=== PATIENT | male | born 2000 | race Hispanic/Latino ===

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

== ENCOUNTER 2022-06-12 12:57 | Emergency (ER) | payer SELFPAY ==
[2022-06-12] MEDS ORDERED: Ondansetron PF 4 MG/2 ML Vial ONE (13:37)
[2022-06-12] MEDS ORDERED: Sodium Chloride 0.9% 1,000 ML ONE (13:37)
[2022-06-12] MEDS ORDERED: Ketorolac Tromethamine 30 MG/ML VIAL ONE (13:37)
[2022-06-12] MEDS ORDERED: Prochlorperazine 10 MG/2 ML VIAL ONE (13:40)
[2022-06-12 13:52] LABS: #Basophils 0.1 thou/uL (0.0-0.2); #Eosinphils 0.1 thou/uL (0.0-0.7); #Lymphocytes 2.2 thou/uL (1.20-3.40); #Monocytes 0.7 thou/uL (0.11-0.59); #Neutrophils 10.3 thou/uL (1.40-6.50); %Basophils 0.6 % (0.0-1.0); %Eosinophils 0.9 % (0.0-10.0); %Lymphocytes 16.4 % (28.0-48.0); %Monocytes 5.5 % (0.0-4.0); %Neutrophils 76.6 % (31.0-61.0); Hemoglobin 15.2 g/dL (14.0-18.0); Mean Corpuscular HGB CONC 33.7 g/dL (32.0-36.0); Mean Corpuscular Hemoglobin 30.8 pg (25.0-35.0); Mean Corpuscular Volume 91.3 fl (78.0-98.0); Mean Platelet Volume 7.4 fL (7.4-10.4); Platelet Count 367 10x3/uL (130-400); RBC Distribution Width 11.5 % (11.5-14.5); Red Blood Cell (RBC) Count 4.92 mill/uL (4.00-5.20); White Blood Cell (WBC) Count 13.4 10x3/uL (4.8-10.8)
[2022-06-12 14:13] LABS: ALT (SGPT) 62 U/L (8-55); AST (SGOT) 32 U/L (10-45); Alkaline Phosphatase 73 U/L (50-130); Anion Gap 21 mmol/L (10-20); BUN (Urea Nitrogen) 10 mg/dL (8.4-21.0); Bilirubin, Total 0.8 mg/dL (0.2-1.2); Calc. Creatinine Clearance 0 mL/min (70-130); Calcium 10.1 mg/dL (7.8-10.44); Carbon Dioxide 15 mmol/L (22-29); Chloride 105 mmol/L (98-107); Estimated GFR 110; Globulin 3.3 g/dL (2.4-3.5); Glucose 169 mg/dL (70-105); Lipase 222 U/L (8-78); Potassium 3.2 mmol/L (3.5-5.1); Protein, Total 8.3 g/dL (6.0-8.3); Sodium 138 mmol/L (136-145)
[2022-06-12] MEDS ORDERED: Potassium Chloride 20 MEQ TAB ONE (15:03)
== END 2022-06-12 15:25 | disposition home or self-care (01) ==
LOC: NAV ERS 12:57
DX: R11.2 Nausea with vomiting, unspecified (principal); R19.7 Diarrhea, unspecified
CPT/HCPCS: 36416; 80053; 83690; 85025; 96361; 96374; 96375; 36415-59; J0780; J1885; J2405; J7050

== ENCOUNTER 2023-04-25 12:52 | Emergency (ER) | payer SELFPAY ==
[2023-04-25] MEDS ORDERED: Haloperidol Lactate 5 MG/ML VIAL ONE (13:14)
[2023-04-25] MEDS ORDERED: Sodium Chloride 0.9% 1,000 ML ONE (13:14)
[2023-04-25 13:41] LABS: #Basophils 0.1 thou/uL (0.0-0.2); #Lymphocytes 1.3 thou/uL (1.20-3.40); #Monocytes 0.6 thou/uL (0.11-0.59); #Neutrophils 13.8 thou/uL (1.40-6.50); %Basophils 0.4 % (0.0-1.0); %Eosinophils 0.1 % (0.0-10.0); %Lymphocytes 8.1 % (28.0-48.0); %Monocytes 3.5 % (0.0-4.0); %Neutrophils 87.8 % (31.0-61.0); Hematocrit 45.6 % (42.0-52.0); Hemoglobin 15.5 g/dL (14.0-18.0); Mean Corpuscular HGB CONC 33.9 g/dL (32.0-36.0); Mean Corpuscular Hemoglobin 30.9 pg (25.0-35.0); Mean Corpuscular Volume 91.1 fl (78.0-98.0); Mean Platelet Volume 7.3 fL (7.4-10.4); Platelet Count 364 10x3/uL (130-400); Red Blood Cell (RBC) Count 5.01 mill/uL (4.00-5.20); White Blood Cell (WBC) Count 15.7 10x3/uL (4.8-10.8)
[2023-04-25 13:50] LABS: ALT (SGPT) 17 U/L (8-55); AST (SGOT) 20 U/L (5-34); Alkaline Phosphatase 87 U/L (50-130); Anion Gap 16 mmol/L (10-20); BUN (Urea Nitrogen) 11 mg/dL (8.9-20.6); Bilirubin, Total 0.8 mg/dL (0.2-1.2); Calc. Creatinine Clearance 0 mL/min (70-130); Calcium 9.9 mg/dL (7.8-10.44); Carbon Dioxide 21 mmol/L (22-29); Chloride 101 mmol/L (98-107); Estimated GFR 115; Globulin 3.3 g/dL (2.4-3.5); Glucose 144 mg/dL (70-105); Lipase 60 U/L (8-78); Magnesium 1.9 mg/dL (1.7-2.2); Potassium 3.4 mmol/L (3.5-5.1); Protein, Total 8.3 g/dL (6.0-8.3); Sodium 135 mmol/L (136-145)
== END 2023-04-25 14:46 | disposition home or self-care (01) ==
LOC: NAV ERS 12:52
DX: F12.288 Cannabis dependence with other cannabis-induced disorder (principal); R11.2 Nausea with vomiting, unspecified
CPT/HCPCS: 80053; 83690; 83735; 85025; 96361; 96374; J1630; J7050

== ENCOUNTER 2023-04-27 12:58 | Emergency (ER) | payer SELFPAY ==
[2023-04-27] MEDS ORDERED: Sodium Chloride 0.9% 1,000 ML ONE (13:35)
[2023-04-27] MEDS ORDERED: Haloperidol Lactate 5 MG/ML VIAL ONE (13:35)
[2023-04-27 13:57] LABS: #Lymphocytes 0.9 thou/uL (1.20-3.40); #Monocytes 0.4 thou/uL (0.11-0.59); #Neutrophils 10.2 thou/uL (1.40-6.50); %Basophils 0.4 % (0.0-1.0); %Lymphocytes 8.1 % (28.0-48.0); %Monocytes 3.6 % (0.0-4.0); %Neutrophils 87.8 % (31.0-61.0); Hematocrit 44.8 % (42.0-52.0); Hemoglobin 15.2 g/dL (14.0-18.0); Mean Corpuscular Hemoglobin 30.5 pg (25.0-35.0); Mean Corpuscular Volume 89.6 fl (78.0-98.0); Mean Platelet Volume 6.8 fL (7.4-10.4); Platelet Count 339 10x3/uL (130-400); RBC Distribution Width 10.9 % (11.5-14.5); White Blood Cell (WBC) Count 11.6 10x3/uL (4.8-10.8)
[2023-04-27 14:12] LABS: ALT (SGPT) 15 U/L (8-55); AST (SGOT) 18 U/L (5-34); Alkaline Phosphatase 82 U/L (50-130); Anion Gap 17 mmol/L (10-20); BUN (Urea Nitrogen) 12 mg/dL (8.9-20.6); Bilirubin, Total 1.1 mg/dL (0.2-1.2); Calc. Creatinine Clearance 0 mL/min (70-130); Calcium 9.7 mg/dL (7.8-10.44); Carbon Dioxide 19 mmol/L (22-29); Chloride 103 mmol/L (98-107); Estimated GFR 109; Globulin 3.3 g/dL (2.4-3.5); Glucose 141 mg/dL (70-105); Lipase 108 U/L (8-78); Potassium 3.6 mmol/L (3.5-5.1); Protein, Total 8.3 g/dL (6.0-8.3); Sodium 135 mmol/L (136-145)
== END 2023-04-27 15:47 | disposition home or self-care (01) ==
LOC: NAV ERS 12:58
DX: R11.2 Nausea with vomiting, unspecified (principal)
CPT/HCPCS: 80053; 83690; 85025; 96360; 96361; 96372; J1630; J7050

== ENCOUNTER 2024-02-15 15:21 | Emergency (ER) | payer BC ==
[2024-02-15] MEDS ORDERED: Haloperidol Lactate 5 MG/ML VIAL ONE (15:42)
[2024-02-15] MEDS ORDERED: diphenhydrAMINE 50 MG/ML VIAL ONE ×2 (15:45→16:35)
[2024-02-15 15:55] LABS: #Basophils 0.1 thou/uL (0.0-0.2); #Lymphocytes 1.6 thou/uL (1.20-3.40); #Monocytes 0.7 thou/uL (0.11-0.59); #Neutrophils 8.2 thou/uL (1.40-6.50); %Basophils 0.7 % (0.0-1.0); %Eosinophils 0.1 % (0.0-10.0); %Lymphocytes 15.1 % (21.0-51.0); %Monocytes 6.6 % (0.0-10.0); %Neutrophils 77.5 % (42.0-75.0); Hematocrit 47.1 % (42.0-52.0); Hemoglobin 15.9 g/dL (14.0-18.0); Mean Corpuscular HGB CONC 33.8 g/dL (32.0-36.0); Mean Corpuscular Hemoglobin 30.6 pg (27.0-31.0); Mean Corpuscular Volume 90.5 fl (78.0-98.0); Mean Platelet Volume 7.1 fL (7.4-10.4); Platelet Count 388 10x3/uL (130-400); RBC Distribution Width 10.9 % (11.5-14.5); Red Blood Cell (RBC) Count 5.21 mill/uL (4.70-6.10); White Blood Cell (WBC) Count 10.5 10x3/uL (4.8-10.8)
[2024-02-15 16:18] LABS: ALT (SGPT) 45 U/L (8-55); AST (SGOT) 45 U/L (5-34); Albumin 4.9 g/dL (3.5-5.0); Alkaline Phosphatase 69 U/L (40-110); Anion Gap 21 mmol/L (10-20); BUN (Urea Nitrogen) 11 mg/dL (8.9-20.6); Calc. Creatinine Clearance 0 mL/min (70-130); Calcium 10.1 mg/dL (7.8-10.44); Carbon Dioxide 18 mmol/L (22-29); Chloride 102 mmol/L (98-107); Estimated GFR 101; Globulin 3.3 g/dL (2.4-3.5); Glucose 123 mg/dL (70-105); Lipase 119 U/L (8-78); Potassium 3.6 mmol/L (3.5-5.1); Protein, Total 8.2 g/dL (6.0-8.3); Sodium 137 mmol/L (136-145)
[2024-02-15] MEDS ORDERED: Lorazepam 2 MG/ML VIAL ONE (16:25)
== END 2024-02-15 18:36 | disposition home or self-care (01) ==
LOC: NAV ERS 15:21
DX: R11.2 Nausea with vomiting, unspecified (principal); G25.9 Extrapyramidal and movement disorder, unspecified
CPT/HCPCS: 80053; 83605; 83690; 85025; 96361; 96372; 96374; 96375; 96376; J1200; J1630; J2060

== ENCOUNTER 2024-02-19 21:23 | Emergency (ER) | payer BC ==
[2024-02-19] MEDS ORDERED: Sodium Chloride 0.9% 1,000 ML ONE ×2 (21:40→22:50)
[2024-02-19] MEDS ORDERED: Ondansetron PF 4 MG/2 ML Vial ONE (21:40)
[2024-02-19 21:52] LABS: #Basophils 0.1 thou/uL (0.0-0.2); #Eosinophils 0.1 thou/uL (0.0-0.7); #Lymphocytes 2.8 thou/uL (1.20-3.40); #Monocytes 0.9 thou/uL (0.11-0.59); #Neutrophils 6.8 thou/uL (1.40-6.50); %Basophils 0.6 % (0.0-1.0); %Eosinophils 0.5 % (0.0-10.0); %Lymphocytes 26.4 % (21.0-51.0); %Monocytes 8.5 % (0.0-10.0); Hematocrit 46.3 % (42.0-52.0); Hemoglobin 16.2 g/dL (14.0-18.0); Mean Corpuscular HGB CONC 34.9 g/dL (32.0-36.0); Mean Corpuscular Hemoglobin 31.2 pg (27.0-31.0); Mean Corpuscular Volume 89.2 fl (78.0-98.0); Mean Platelet Volume 7.1 fL (7.4-10.4); Platelet Count 449 10x3/uL (130-400); RBC Distribution Width 10.6 % (11.5-14.5); Red Blood Cell (RBC) Count 5.19 mill/uL (4.70-6.10); White Blood Cell (WBC) Count 10.6 10x3/uL (4.8-10.8)
[2024-02-19 22:10] LABS: ALT (SGPT) 53 U/L (8-55); AST (SGOT) 43 U/L (5-34); Alkaline Phosphatase 71 U/L (40-110); Anion Gap 23 mmol/L (10-20); BUN (Urea Nitrogen) 12 mg/dL (8.9-20.6); Bilirubin, Total 1.2 mg/dL (0.2-1.2); Calc. Creatinine Clearance 0 mL/min (70-130); Calcium 10.2 mg/dL (7.8-10.44); Carbon Dioxide 16 mmol/L (22-29); Chloride 100 mmol/L (98-107); Estimated GFR 91; Globulin 3.3 g/dL (2.4-3.5); Glucose 106 mg/dL (70-105); Lipase 73 U/L (8-78); Potassium 3.6 mmol/L (3.5-5.1); Protein, Total 8.3 g/dL (6.0-8.3); Sodium 135 mmol/L (136-145)
[2024-02-19] MEDS ORDERED: Lorazepam 2 MG/ML VIAL ONE (22:13)
[2024-02-19] MEDS ORDERED: Pantoprazole 40 MG VIAL ONE (22:13)
[2024-02-19] MEDS ORDERED: Promethazine HCl 25 MG/ML VIAL ONE (22:13)
[2024-02-20 00:11] LABS: Bilirubin Small (Negative); Blood, Urine Trace (Negative); Clarity Clear (Clear); Glucose, Urine (Dipstick) Negative (Negative); Ketone, Urine > or equal to 80 mg/dL (Negative); Leukocyte Negative (Negative); Nitrite Negative (Negative); Protein, Urine (Dipstick) Negative (Neg-Trace); Specific Gravity, Urine 1.015 (1.005-1.030); Urobilinogen 0.2 mg/dL (Less than 2); pH, Urine 6.5 (5.0-9.0)
[2024-02-20 00:12] LABS: Bacteria/HPF Rare-Few HPF (None Seen); CAUTI Indications for Culture Pelvic or flank pain; Mucous/LPF 1+ LPF (<2+); RBC/HPF 0-3 HPF (0-3); WBC/HPF 0-3 HPF (0-3)
[2024-02-20 00:13] LABS: Urine Culture Reflex No No
[2024-02-20 00:20] LABS: Amphetamine Not Detected (NotDetected); Barbiturates Screen Not Detected (NotDetected); Benzodiazepine Screen Not Detected (NotDetected); Cocaine Metabolite Screen Not Detected (NotDetected); Methadone Not Detected (NotDetected); Methamphetamine Not Detected (NotDetected); Opiate Screen Not Detected (NotDetected); Oxycodone Screen Not Detected (NotDetected); Phencyclidine (PCP) Not Detected (NotDetected); THC/Cannabinoid Screen Detected (NotDetected); Tricyclic Screen Not Detected (NotDetected)
== END 2024-02-20 00:24 | disposition home or self-care (01) ==
LOC: NAV ERS 21:23
DX: E86.0 Dehydration (principal); R11.2 Nausea with vomiting, unspecified; F12.10 Cannabis abuse, uncomplicated; G25.9 Extrapyramidal and movement disorder, unspecified
CPT/HCPCS: 80053; 80306; 81001; 83690; 85025; 96361; 96374; 96375; J2060; J2405; J2470; J2550; J7030

== ENCOUNTER 2024-03-15 12:56 | Emergency (ER) | payer BC ==
[2024-03-15] MEDS ORDERED: Sodium Chloride 0.9% 1,000 ML ONE (13:38)
[2024-03-15] MEDS ORDERED: Metoclopramide HCl 10 MG (2 mL) VIAL ONE (13:38)
[2024-03-15] MEDS ORDERED: Ondansetron PF 4 MG/2 ML Vial ONE (13:38)
[2024-03-15] MEDS ORDERED: diphenhydrAMINE 50 MG/ML VIAL ONE (13:38)
[2024-03-15 13:51] LABS: #Lymphocytes 1.8 thou/uL (1.20-3.40); #Monocytes 0.5 thou/uL (0.11-0.59); #Neutrophils 6.2 thou/uL (1.40-6.50); %Basophils 0.4 % (0.0-1.0); %Eosinophils 0.1 % (0.0-10.0); %Lymphocytes 20.9 % (21.0-51.0); %Monocytes 6.4 % (0.0-10.0); %Neutrophils 72.3 % (42.0-75.0); Hematocrit 46.2 % (42.0-52.0); Hemoglobin 15.7 g/dL (14.0-18.0); Mean Corpuscular HGB CONC 34.1 g/dL (32.0-36.0); Mean Corpuscular Hemoglobin 30.4 pg (27.0-31.0); Mean Corpuscular Volume 89.3 fl (78.0-98.0); Mean Platelet Volume 6.7 fL (7.4-10.4); Platelet Count 386 10x3/uL (130-400); RBC Distribution Width 10.6 % (11.5-14.5); Red Blood Cell (RBC) Count 5.17 mill/uL (4.70-6.10); White Blood Cell (WBC) Count 8.5 10x3/uL (4.8-10.8)
[2024-03-15 14:09] LABS: ALT (SGPT) 45 U/L (8-55); AST (SGOT) 22 U/L (5-34); Albumin 4.7 g/dL (3.5-5.0); Alkaline Phosphatase 67 U/L (40-110); Anion Gap 18 mmol/L (10-20); BUN (Urea Nitrogen) 10 mg/dL (8.9-20.6); Bilirubin, Total 1.1 mg/dL (0.2-1.2); Calc. Creatinine Clearance 0 mL/min (70-130); Carbon Dioxide 19 mmol/L (22-29); Chloride 101 mmol/L (98-107); Estimated GFR 115; Glucose 114 mg/dL (70-105); Lipase 45 U/L (8-78); Potassium 3.3 mmol/L (3.5-5.1); Protein, Total 7.7 g/dL (6.0-8.3); Sodium 135 mmol/L (136-145)
[2024-03-15 14:10] LABS: Acetaminophen Less than 10 mcg/mL (Less than 10); Alcohol Less than 10.0 mg/dL (Less than 10); Salicylate Less than 8.0 mg/dL (Less than 8.0)
== END 2024-03-15 14:56 | disposition home or self-care (01) ==
LOC: NAV ERS 12:56
DX: R11.15 Cyclical vomiting syndrome unrelated to migraine (principal); E86.0 Dehydration
CPT/HCPCS: 80053; 80307; 83690; 85025; 96361; 96374; 96375; J1200; J2405; J2765; J7030

== ENCOUNTER 2024-04-11 12:23 | Emergency (ER) | payer BC ==
[2024-04-11] MEDS ORDERED: Sodium Chloride 0.9% 1,000 ML ONE (12:44)
[2024-04-11] MEDS ORDERED: Promethazine HCl 25 MG/ML VIAL ONE (12:44)
[2024-04-11 13:05] LABS: ALT (SGPT) 59 U/L (8-55); AST (SGOT) 24 U/L (5-34); Albumin 4.7 g/dL (3.5-5.0); Alkaline Phosphatase 66 U/L (40-110); Anion Gap 18 mmol/L (10-20); BUN (Urea Nitrogen) 9 mg/dL (8.9-20.6); Bilirubin, Total 0.7 mg/dL (0.2-1.2); Calc. Creatinine Clearance 0 mL/min (70-130); Calcium 10.2 mg/dL (7.8-10.44); Carbon Dioxide 21 mmol/L (22-29); Chloride 100 mmol/L (98-107); Estimated GFR 117; Globulin 3.7 g/dL (2.4-3.5); Glucose 155 mg/dL (70-105); Potassium 3.4 mmol/L (3.5-5.1); Protein, Total 8.4 g/dL (6.0-8.3); Sodium 136 mmol/L (136-145)
== END 2024-04-11 14:22 | disposition home or self-care (01) ==
LOC: NAV ERS 12:23
DX: R11.15 Cyclical vomiting syndrome unrelated to migraine (principal)
CPT/HCPCS: 80053; 96365; J2550; J7030

== ENCOUNTER 2024-05-22 13:58 | Emergency (ER) | payer BC ==
[~2024-05-22 13:58] MED LIST: Iopamidol 370 76% 100 ML VIAL ONE
[2024-05-22] MEDS ORDERED: Sodium Chloride 0.9% 1,000 ML ONE ×3 (14:08→15:56)
[2024-05-22] MEDS ORDERED: Ondansetron PF 4 MG/2 ML Vial ONE (14:08)
[2024-05-22 14:15] LABS: #Lymphocytes 0.8 thou/uL (1.20-3.40); #Monocytes 0.3 thou/uL (0.11-0.59); #Neutrophils 11.6 thou/uL (1.40-6.50); %Basophils 0.2 % (0.0-1.0); %Monocytes 2.3 % (0.0-10.0); %Neutrophils 91.4 % (42.0-75.0); Hematocrit 44.8 % (42.0-52.0); Hemoglobin 14.7 g/dL (14.0-18.0); Mean Corpuscular HGB CONC 32.8 g/dL (32.0-36.0); Mean Corpuscular Hemoglobin 29.3 pg (27.0-31.0); Mean Corpuscular Volume 89.3 fl (78.0-98.0); Mean Platelet Volume 6.6 fL (7.4-10.4); Platelet Count 449 10x3/uL (130-400); RBC Distribution Width 11.8 % (11.5-14.5); Red Blood Cell (RBC) Count 5.01 mill/uL (4.70-6.10); White Blood Cell (WBC) Count 12.6 10x3/uL (4.8-10.8)
[2024-05-22] MEDS ORDERED: Promethazine HCl 25 MG/ML VIAL ONE ×2 (14:32→16:08)
[2024-05-22 14:36] LABS: ALT (SGPT) 32 U/L (8-55); AST (SGOT) 19 U/L (5-34); Alkaline Phosphatase 70 U/L (40-110); Anion Gap 19 mmol/L (10-20); BUN (Urea Nitrogen) 10 mg/dL (8.9-20.6); Bilirubin, Total 0.8 mg/dL (0.2-1.2); Calc. Creatinine Clearance 0 mL/min (70-130); Calcium 10.4 mg/dL (7.8-10.44); Carbon Dioxide 22 mmol/L (22-29); Chloride 101 mmol/L (98-107); Estimated GFR 120; Globulin 3.7 g/dL (2.4-3.5); Glucose 170 mg/dL (70-105); Lipase 48 U/L (8-78); Potassium 3.7 mmol/L (3.5-5.1); Protein, Total 8.7 g/dL (6.0-8.3); Sodium 138 mmol/L (136-145)
[2024-05-22] MEDS ORDERED: Dicyclomine 20 MG TAB ONE (16:06)
[2024-05-22] MEDS ORDERED: Furosemide 20 MG (2 mL) VIAL ONE (16:48)
[2024-05-22 17:07] LABS: Bilirubin Negative (Negative); Blood, Urine Trace (Negative); Clarity Clear (Clear); Glucose, Urine (Dipstick) Negative (Negative); Ketone, Urine 40 mg/dL (Negative); Leukocyte Negative (Negative); Nitrite Negative (Negative); Protein, Urine (Dipstick) Negative (Neg-Trace); Urobilinogen 0.2 mg/dL (Less than 2); pH, Urine 8.5 (5.0-9.0)
[2024-05-22 17:16] LABS: Amphetamine Not Detected (NotDetected); Barbiturates Screen Not Detected (NotDetected); Benzodiazepine Screen Not Detected (NotDetected); Cocaine Metabolite Screen Not Detected (NotDetected); Methadone Not Detected (NotDetected); Methamphetamine Not Detected (NotDetected); Opiate Screen Not Detected (NotDetected); Oxycodone Screen Not Detected (NotDetected); Phencyclidine (PCP) Not Detected (NotDetected); THC/Cannabinoid Screen Not Detected (NotDetected); Tricyclic Screen Not Detected (NotDetected)
[2024-05-22 17:26] LABS: CAUTI Indications for Culture Fever or rigors; RBC/HPF 0-3 HPF (0-3); Squamous Epithelial 0-3 HPF (0-3); WBC/HPF None Seen HPF (0-3)
[2024-05-22 17:27] LABS: Urine Culture Reflex No No
[2024-05-22] MEDS ORDERED: fentaNYL 50 mcg/mL 1 mL Vial ONE ×2 (17:37→18:22)
[2024-05-22] MEDS ORDERED: metroNIDAZOLE 500 MG (100 mL) BAG ONE (18:23)
[2024-05-22] MEDS ORDERED: Acetaminophen 325 MG TAB ONE (18:37)
[2024-05-22] MEDS ORDERED: Ciprofloxacin Lactate D5W 400 mg (200 mL) BAG ONE (19:29)
== END 2024-05-22 20:17 | disposition short-term general hospital (02) ==
LOC: NAV ERS 13:58
DX: K52.9 Noninfective gastroenteritis and colitis, unspecified (principal)
CPT/HCPCS: 74177; 80053; 80306; 81001; 83690; 85025; 96361; 96365; 96375; 96376; J0744; J1940; J2405; J2550; J3010; J7030; Q9967

== ENCOUNTER 2025-02-10 19:50 | Emergency (ER) | payer BC ==
[2025-02-10] MEDS ORDERED: Pantoprazole 40 MG VIAL ONE (20:27)
[2025-02-10 20:53] LABS: #Basophils 0.1 thou/uL (0.0-0.2); #Eosinophils 0.0 thou/uL (0.0-0.7); #Lymphocytes 1.5 thou/uL (1.20-3.40); #Monocytes 1.1 thou/uL (0.11-0.59); #Neutrophils 12.5 thou/uL (1.40-6.50); %Basophils 0.4 % (0.0-1.0); %Eosinophils 0.0 % (0.0-10.0); %Lymphocytes 9.7 % (21.0-51.0); %Monocytes 7.1 % (0.0-10.0); %Neutrophils 82.7 % (42.0-75.0); Hematocrit 47.4 % (42.0-52.0); Hemoglobin 16.4 g/dL (14.0-18.0); Mean Corpuscular Hemoglobin 29.9 pg (27.0-31.0); Mean Corpuscular Volume 86.6 fl (78.0-98.0); Platelet Count 368 10x3/uL (130-400); Red Blood Cell (RBC) Count 5.48 mill/uL (4.70-6.10); White Blood Cell (WBC) Count 15.1 10x3/uL (4.8-10.8)
[2025-02-10 21:13] LABS: ALT (SGPT) 26 U/L (Less than 45); AST (SGOT) 51 U/L (11-34); Albumin 5.0 g/dL (3.1-4.5); Alkaline Phosphatase 62 U/L (40-110); Anion Gap 23 mmol/L (10-20); BUN (Urea Nitrogen) 15 mg/dL (8.9-20.6); Bilirubin, Total 0.9 mg/dL (0.3-1.2); Calc. Creatinine Clearance 0 mL/min (70-130); Calcium 10.5 mg/dL (7.8-10.44); Carbon Dioxide 23 mmol/L (22-29); Chloride 99 mmol/L (98-107); Globulin 4.2 g/dL (2.4-3.5); Glucose 139 mg/dL (70-105); Potassium 3.6 mmol/L (3.5-5.1); Sodium 141 mmol/L (136-145)
== END 2025-02-10 21:42 | disposition home or self-care (01) ==
LOC: NAV ERS 19:50
DX: R11.2 Nausea with vomiting, unspecified (principal); E86.0 Dehydration
CPT/HCPCS: 80053; 85025; 96365; 96375; J2470; J2550; J7030

== ENCOUNTER 2025-03-24 10:12 | Emergency (ER) | payer BC ==
[2025-03-24] MEDS ORDERED: Dicyclomine 20 MG TAB ONE (11:43)
[2025-03-24] MEDS ORDERED: Pantoprazole 40 MG VIAL ONE (11:44)
[2025-03-24 12:07] LABS: #Basophils 0.1 thou/uL (0.0-0.2); #Eosinophils 0.0 thou/uL (0.0-0.7); #Lymphocytes 1.3 thou/uL (1.20-3.40); #Monocytes 0.8 thou/uL (0.11-0.59); #Neutrophils 7.7 thou/uL (1.40-6.50); %Basophils 1.0 % (0.0-1.0); %Eosinophils 0.0 % (0.0-10.0); %Lymphocytes 13.4 % (21.0-51.0); %Monocytes 7.9 % (0.0-10.0); %Neutrophils 77.6 % (42.0-75.0); Hematocrit 46.2 % (42.0-52.0); Hemoglobin 15.6 g/dL (14.0-18.0); Mean Corpuscular Hemoglobin 31.0 pg (27.0-31.0); Mean Corpuscular Volume 92.1 fl (78.0-98.0); Platelet Count 374 10x3/uL (130-400); Red Blood Cell (RBC) Count 5.02 mill/uL (4.70-6.10); White Blood Cell (WBC) Count 10.0 10x3/uL (4.8-10.8)
[2025-03-24 12:16] LABS: ALT (SGPT) 59 U/L (Less than 45); AST (SGOT) 40 U/L (11-34); Albumin 5.0 g/dL (3.1-4.5); Alkaline Phosphatase 64 U/L (40-110); Anion Gap 19 mmol/L (10-20); BUN (Urea Nitrogen) 10 mg/dL (8.9-20.6); Bilirubin, Total 0.9 mg/dL (0.3-1.2); Calc. Creatinine Clearance 0 mL/min (70-130); Calcium 10.1 mg/dL (7.8-10.44); Carbon Dioxide 23 mmol/L (22-29); Chloride 99 mmol/L (98-107); Globulin 3.3 g/dL (2.4-3.5); Glucose 121 mg/dL (70-105); Lipase 43 U/L (8-78); Potassium 4.2 mmol/L (3.5-5.1); Sodium 137 mmol/L (136-145)
[2025-03-24] MEDS ORDERED: Ondansetron PF 4 MG/2 ML Vial ONE (13:15)
[2025-03-24 15:08] LABS: Glucose, Urine (Dipstick) Negative (Negative); Leukocyte Negative (Negative); Protein, Urine (Dipstick) Negative (Neg-Trace); RBC/HPF 0-3 HPF (0-3); Specific Gravity, Urine 1.010 (1.005-1.030)
[2025-03-24 15:15] LABS: THC/Cannabinoid Screen PRELIM POSITIVE (Negative)
[2025-03-24 15:16] LABS: Cocaine Metabolite Screen Negative (Negative); Tricyclic Screen Negative (Negative)
== END 2025-03-24 17:15 | disposition home or self-care (01) ==
LOC: NAV ERS 10:12
DX: R11.2 Nausea with vomiting, unspecified (principal)
CPT/HCPCS: 74177; 80053; 80306; 81001; 83690; 85025; J2272; J2405; J2470; J2550; J7030; J7120

== ENCOUNTER 2025-04-25 11:24 | Emergency (ER) | payer BC ==
[2025-04-25] MEDS ORDERED: Ondansetron PF 4 MG/2 ML Vial ONE (11:52)
[2025-04-25] MEDS ORDERED: Famotidine/PF 20 mg/2ml Vial ONE (11:52)
[2025-04-25 12:02] LABS: Hematocrit 43.8 % (42.0-52.0); Hemoglobin 15.4 g/dL (14.0-18.0); MDiff Complete? YES; Mean Corpuscular Hemoglobin 30.6 pg (27.0-31.0); Mean Corpuscular Volume 87.0 fl (78.0-98.0); Platelet Count 404 10x3/uL (130-400); Red Blood Cell (RBC) Count 5.03 mill/uL (4.70-6.10); White Blood Cell (WBC) Count 11.8 10x3/uL (4.8-10.8)
[2025-04-25 12:19] LABS: ALT (SGPT) 19 U/L (Less than 45); AST (SGOT) 24 U/L (11-34); Albumin 4.9 g/dL (3.1-4.5); Alkaline Phosphatase 63 U/L (40-110); Anion Gap 20 mmol/L (10-20); BUN (Urea Nitrogen) 10 mg/dL (8.9-20.6); Bilirubin, Total 1.1 mg/dL (0.3-1.2); Calc. Creatinine Clearance 0 mL/min (70-130); Calcium 10.1 mg/dL (7.8-10.44); Carbon Dioxide 20 mmol/L (22-29); Chloride 104 mmol/L (98-107); Globulin 3.4 g/dL (2.4-3.5); Glucose 142 mg/dL (70-105); Potassium 3.6 mmol/L (3.5-5.1); Sodium 140 mmol/L (136-145)
[2025-04-25 12:22] LABS: Acetaminophen Less than 10 mcg/mL (Less than 10); Lipase 33 U/L (8-78); Salicylate Less than 8.0 mg/dL (Less than 8.0)
[2025-04-25] MEDS ORDERED: Dicyclomine 20 MG TAB ONE (13:31)
[2025-04-25] MEDS ORDERED: KETAMINE 100 MG/ML (5ML VIAL) ONE (14:33)
[2025-04-25 16:21] LABS: Glucose, Urine (Dipstick) Negative (Negative); Leukocyte Negative (Negative); Protein, Urine (Dipstick) Negative (Neg-Trace); Specific Gravity, Urine 1.015 (1.005-1.030)
[2025-04-25 16:31] LABS: Cocaine Metabolite Screen Negative (Negative); THC/Cannabinoid Screen Negative (Negative); Tricyclic Screen Negative (Negative)
[2025-04-25 16:37] LABS: CAUTI Indications for Culture Alt mental st,lethar; RBC/HPF 0-3 HPF (0-3); WBC/HPF 0-3 HPF (0-3)
[2025-04-25 16:38] LABS: Urine Culture Reflex No No
== END 2025-04-25 17:10 | disposition home or self-care (01) ==
LOC: NAV ERS 11:24
DX: R11.2 Nausea with vomiting, unspecified (principal); E86.0 Dehydration
CPT/HCPCS: 80053; 80306; 80307; 81001; 83605; 83690; 85025; 96361; 96365; 96375; J1308; J2405; J2550; J7030